=== PATIENT | female | born 1990 | race Caucasian/White ===

== ENCOUNTER 2018-11-03 08:05 | Day surgery (SDC) | payer OTHER ==
[2018-11-02 17:24] VITALS: BMI 53.7
[2018-11-03] MEDS ORDERED: PROPOFOL 200 MG/20 ML VIAL ONE (10:29)
--- NOTE | 2018-11-03 11:33 | OP ---
DATE OF PROCEDURE: 11/03/2018 PROCEDURE PERFORMED: Esophagogastroduodenoscopy. PREMEDICATION: Given by Anesthesiology Department. PREPROCEDURE DIAGNOSES: 1. Gastroesophageal reflux disease. 2. Preoperative evaluation for bariatric surgery. POSTPROCEDURE DIAGNOSES: 1. Small hiatal hernia. 2. Otherwise, normal upper endoscopy. DESCRIPTION OF PROCEDURE: Written consents were obtained prior to procedure. After adequate sedation, the forward viewing endoscope was advanced down the stomach under direct vision to the third portion of duodenum. The duodenum and the bulb appeared normal. The pylorus was patent. The gastric antrum, body, fundus, and cardia appeared normal. Retroflexion demonstrated a small hiatal hernia. The gastric narrowing was noted at 40 cm. The Z-line, which appeared to be regular, was noted at 38 cm from the incisors. The lower, mid, and upper esophagus appeared normal. There was no evidence of esophagitis or erosions. The patient tolerated the procedure well. ASSESSMENT: 1. Small hiatal hernia, gastric narrowing at 40 cm and Z-line at 38 cm from the incisors. 2. Otherwise, normal upper endoscopy. RECOMMENDATIONS: Proceed with bariatric surgery. Job ID: [id number]
== END 2018-11-03 11:30 | disposition home or self-care (01) ==
LOC: SDC 08:05
PROVIDERS: ATTEND Internal Medicine Gastroenterology
PROC: 0DJ08ZZ Inspection of Upper Intestinal Tract, Via Natural or Artificial Opening Endoscopic (ICD-10-PCS; principal; 2018-11-03)
DX: K21.9 Gastro-esophageal reflux disease without esophagitis (principal); K44.9 Diaphragmatic hernia without obstruction or gangrene; E66.01 Morbid (severe) obesity due to excess calories; Z68.43 Body mass index [BMI] 50.0-59.9, adult; Z87.891 Personal history of nicotine dependence; Z88.1 Allergy status to other antibiotic agents; Z88.7 Allergy status to serum and vaccine; Z79.899 Other long term (current) drug therapy
CPT/HCPCS: J2704

== ENCOUNTER → 2024-08-08 | Day surgery (SDC) | payer OTHER ==
[~2024-08-08] MED LIST: diphenhydrAMINE 50 MG/ML VIAL ONE
[2024-08-08] MEDS: diphenhydrAMINE 50 MG/ML VIAL IVP SCH (09:54)
[2024-08-08] MEDS: Sodium Ferric Gluconate 250 MG in Sodium Chloride 0.9% 250 ML 250 ML IVPB SCH (10:38)
[2024-08-08 11:47] VITALS: BP 118/62; TEMP 98.4
== END ==
LOC: ONC/OP 09:24
PROVIDERS: ATTEND Internal Medicine Hematology & Oncology
DX: D50.0 Iron deficiency anemia secondary to blood loss (chronic) (principal); Z88.8 Allergy status to other drugs, medicaments and biological substances
CPT/HCPCS: 96365; 96366; 96375; J1200; J2916; J7050

== ENCOUNTER 2024-08-26 11:21 | Emergency (ER) | payer OTHER ==
[2024-08-26 12:17] LABS: BHCG - Serum Negative (NEGATIVE); Pregs Control Background? CLEAR/WHITE (CLR/WHITE); Pregs Control Bar Appear? YES (CONTROL BAR)
[2024-08-26 12:26] LABS: #Basophils Less than 0.03 10x3/uL (0.0-0.2); %Basophils 0.3 % (0.0-1.0); %Eosinophils 0.8 % (0.0-10.0); %Lymphocytes 23.3 % (21.0-51.0); %Monocytes 5.4 % (0.0-10.0); %Neutrophils 69.9 % (42.0-75.0); ALT (SGPT) 21 U/L (8-55); AST (SGOT) 14 U/L (5-34); Albumin 4.1 g/dL (3.5-5.0); Alkaline Phosphatase 97 U/L (40-110); Anion Gap 11 mmol/L (10-20); BUN (Urea Nitrogen) 8 mg/dL (7.0-18.7); Bilirubin, Total 0.6 mg/dL (0.2-1.2); Calc. Creatinine Clearance 0 mL/min (70-130); Calcium 9.4 mg/dL (7.8-10.44); Carbon Dioxide 23 mmol/L (22-29); Chloride 108 mmol/L (98-107); Estimated GFR 122; Globulin 3.4 g/dL (2.4-3.5); Glucose 80 mg/dL (70-105); Hematocrit 31.6 % (36.0-47.0); Lipase 18 U/L (8-78); Mean Corpuscular HGB CONC 28.5 g/dL (32.0-36.0); Mean Corpuscular Volume 70.1 fL (78.0-98.0); Mean Platelet Volume 9.2 fL (7.4-10.4); Platelet Count 595 10x3/uL (130-400); Potassium 3.6 mmol/L (3.5-5.1); Protein, Total 7.5 g/dL (6.0-8.3); RBC Distribution Width 29.3 % (11.5-14.5); Red Blood Cell (RBC) Count 4.51 mill/uL (4.20-5.40); Sodium 138 mmol/L (136-145)
[2024-08-26 12:57] LABS: Anisocytosis SLIGHT = 6-15 cells HPF (0-5); Elliptocytes SLIGHT = 2-5 cells HPF (0-1); Microcytosis SLIGHT = 6-15 cells HPF (0-5); Platelet Adequacy Comment Platelets Increased; Polychromasia MODERATE = 3-4 cells HPF (0-2); Schistocytes SLIGHT = 2-5 cells HPF (0-1)
[2024-08-26] MEDS ORDERED: Dicyclomine 20 MG/2 ML VIAL ONE (13:20)
[2024-08-26] MEDS ORDERED: Mag-Al 1200 mg/1200 mg/30 ML UDCUP ONE (13:20)
[2024-08-26] MEDS ORDERED: Lidocaine Viscous Sol 2% 15 ml UD Cup ONE (13:21)
[2024-08-26] MEDS ORDERED: Droperidol 5 MG/2 ML VIAL SLOW IVP SCH (13:45)
[2024-08-26 14:46] LABS: Bacteria/HPF None Seen HPF (None Seen); Bilirubin Negative (Negative); Blood, Urine 1+ (Negative); CAUTI Indications for Culture Pelvic or flank pain; Clarity Clear (Clear); Glucose, Urine (Dipstick) Normal (Negative); Ketone, Urine Negative (Negative); Leukocyte Negative Leu/uL (Negative); Nitrite Negative (Negative); Protein, Urine (Dipstick) 10 mg/dL (Neg-Trace); Specific Gravity, Urine 1.031 (1.002-1.036); Squamous Epithelial 0-3 HPF (0-3); Urobilinogen Normal mg/dL (Less than 2); WBC/HPF 0-3 HPF (0-3); pH, Urine 5.5 (5.0-9.0)
[2024-08-26 14:50] LABS: Urine Culture Reflex No No
== END 2024-08-26 15:22 | disposition home or self-care (01) ==
LOC: ERS 11:21
DX: R10.13 Epigastric pain (principal)
CPT/HCPCS: 36415; 76705; 80053; 81001; 83690; 83735; 84703; 85025; 96372; 96374; J1790